=== PATIENT | female | born 1995 | race Caucasian/White ===

== ENCOUNTER 2021-06-04 10:52 | Emergency (ER) | payer MEDICAID, OTHER ==
[~2021-06-04] VITALS: Ht 160 cm; Wt 58.9 kg
[2021-06-04 11:00] VITALS: BP 106/63
[2021-06-04 11:07] LABS: BILIRUBIN,URINE NEGATIVE (NEGATIVE); CLARITY,URINE SL CLOUDY; COLOR,URINE YELLOW; GLUCOSE, URINE (UA) NEGATIVE (NEGATIVE); KETONES,URINE TRACE (NEGATIVE); LEUKOCYTE ESTERASE ,URINE TRACE (NEGATIVE); NITRITE,URINE NEGATIVE (NEGATIVE); PROTEIN,URINE NEGATIVE (NEGATIVE)
[2021-06-04 11:20] LABS: BACTERIA,URINE MODERATE /HPF; RBC,URINE RARE /HPF; SQUAMOUS EPITHELIAL CELL,UR 15-20 /HPF
--- NOTE | 2021-06-04 11:20 | ED GU-Female ---
General Chief Complaint: - Reproductive Stated Complaint: SUPRAPUBIC PAIN Source: patient, family Exam Limitations: no limitations History of Present Illness Date Seen by Provider: Jun 04, 2021 Time Seen by Provider: 10:54 Initial Comments 25yoF otherwise healthy coming in for 2 weeks of abd pain, backache, bodyaches. Also feeling intermittently short of breath, not right now. with positive test this Thanksgiving. Vaginal bleeding around that time and none since. LMP was 04/29/21. Has had n/v every day for the past 2 weeks that are nb/nb with loose bowel movements. The pain in her abd in LLQ, sharp, constant for 2 weeks, and moderate. Tylenol takes the edge off the pain. Allergies and Home Medications Allergies Coded Allergies: ibuprofen (Verified Allergy, Unknown, angioedema, 06/04/21) naproxen (Verified Allergy, Unknown, angioedema, 06/04/21) Patient Home Medication List Home Medication List Reviewed: Yes Review of Systems Review of Systems Constitutional: No chills, No fever EENTM: No blurred vision Respiratory: cough, short of breath Cardiovascular: No chest pain Gastrointestinal: abdominal pain Genitourinary: no symptoms reported : Yes Musculoskeletal: no symptoms reported Skin: no symptoms reported Psychiatric/Neurological: No Symptoms Reported Endocrine: No Symptoms Reported Hematologic/Lymphatic: No Symptoms Reported All Other Systemes Reviewed Negative Unless Noted: Yes Past Sgnkcdt-Gevgyd-Adcnfg Hx Patient Social History Substance use?: No Past Medical History Surgeries: No Physical Exam Vital Signs Vital Signs - First Documented 06/04/21 11:00 Temp 37.2 Pulse 114 Resp 16 B/P (MAP) 106/63 (77) Pulse Ox 100 O2 Delivery Room Air Capillary Refill : Height, Weight, BMI Height: '" Weight: lbs. oz. kg; BMI Method: General Appearance: WD/WN, no apparent distress HEENT: PERRL/EOMI, normal ENT inspection, pharynx normal Neck: non-tender, full range of motion, supple, normal inspection Cardiovascular: regular rate, rhythm, no edema, no murmur Respiratory: chest non-tender, lungs clear, normal breath sounds, no respiratory distress, no accessory muscle use Gastrointestinal: normal bowel sounds, non tender, soft; No distended, No guarding Back: normal inspection, no CVA tenderness, no vertebral tenderness Extremities: normal range of motion, non-tender, normal inspection, no pedal edema, no calf tenderness Neurologic/Psychiatric: no motor/sensory deficits, alert, normal mood/affect Skin: normal color, warm/dry Lymphatic: no adenopathy Progress/Results/Core Measures Suspected Sepsis SIRS Temperature: Pulse: Respiratory Rate: Blood Pressure / Mean: Results/Orders Lab Results Laboratory Tests Test 06/04/21 11:00 06/04/21 11:17 06/04/21 11:35 Range/Units Urine Color YELLOW Urine Clarity SL CLOUDY Urine pH 7.0 5-9 Urine Specific [place] 1.015 L 1.016-1.022 Urine Protein NEGATIVE NEGATIVE Urine Glucose (UA) NEGATIVE NEGATIVE Urine Ketones TRACE H NEGATIVE Urine Nitrite NEGATIVE NEGATIVE Urine Bilirubin NEGATIVE NEGATIVE Urine Urobilinogen 0.2 < = 1.0 MG/DL Urine Leukocyte Esterase TRACE H NEGATIVE Urine RBC (Auto) NEGATIVE NEGATIVE Urine RBC RARE /HPF Urine WBC 2-5 /HPF Urine Squamous Epithelial Cells 15-20 /HPF Urine Crystals NONE /LPF Urine Bacteria MODERATE H /HPF Urine Casts NONE /LPF Urine Mucus LARGE H /LPF Urine Culture Indicated NO Human Chorionic Gonadotropin, Quant [id number] H <5 MIU/ML My Orders Orders - MATTHEW VO MD Ua Culture If Indicated (06/04/21 10:58) Urine Bedside (06/04/21 10:58) Hcg,Quantitative (06/04/21 11:07) Covid 19 Inhouse Test (06/04/21 11:07) Acetaminophen Tablet (Tylenol Tablet) (06/04/21 11:45) Nitrofurantoin Capsule,Macro (Macrobid C (06/04/21 11:45) Promethazine Tablet (Phenergan Tablet) (06/04/21 11:45) Us Ob Transvaginal [id number] (06/04/21 11:44) Vital Signs/I&O 06/04/21 11:00 Temp 37.2 Pulse 114 Resp 16 B/P (MAP) 106/63 (77) Pulse Ox 100 O2 Delivery Room Air Capillary Refill : Progress Note : Progress Note 25-year-old female with above history coming in most notably for left lower quadrant abdominal pain in the setting of a positive test. ABCs were intact and vitals are stable on presentation. Her abdomen was soft and actually nontender for me. I did a aikhe-cr-fgcz ultrasound and I am unable to identify an intrauterine . Her oadgs-vk-zroc urine test here was positive so beta hCG quantitative was sent. Urinalysis was obtained and does appear to have bacteria as well as leukocyte esterase. In the setting of we will treat this with nitrofurantoin. She was also given Tylenol for her pain and Phenergan for nausea. Beta-hCG came back just under 5000. The patient had a transvaginal ultrasound showing a gestational sac and yolk sac but no pole as of yet measuring 5 weeks and 3 days. Her ovaries were normal. Her symptoms seem more consistent with a UTI as well as likely vomiting associated with her . I believe she is stable for discharge with outpatient follow-up. She was sent home with strict return precautions Departure Impression Primary Impression: Urinary tract infection Qualified Codes: N30.00 - Acute cystitis without hematuria Additional Impressions: test positive LLQ pain Disposition: HOME, SELF-CARE Condition: Stable Departure-Patient Inst. Decision time for Depature: 12:11 Referrals: CLAUDIA PADILLA MD NO,LOCAL PHYSICIAN (PCP) Primary Care Physician Patient Instructions: Hyperemesis Gravidarum (DC), Stomach Pain in Early Add. Discharge Instructions: You were seen in the emergency department for mainly your abdominal pain, chills, body aches. You are , and we do see this in your uterus which is reassuring. You also have a urinary tract infection which is likely causing a lot of your symptoms. We did send a Covid test just in case, and this will come back later today. Take the antibiotics for the next week, and Tylenol for pain or fever. Please follow-up with an OB of your choice, [facility]. Scripts Promethazine HCl (Promethazine Tablet) 25 Mg Tablet 12.5 MG PO Q6H PRN for NAUSEA-1ST LINE for 7 Days, #14 TAB Prov: MATTHEW VO MD 06/04/21 Nitrofurantoin Macrocrystal (Nitrofurantoin) 100 Mg Capsule 100 MG PO BID for 7 Days, #14 CAP 0 Refills Prov: MATTHEW VO MD 06/04/21 Work/School Note: Work Release Form Date Seen in the Emergency Department: Jun 04, 2021 Return to Work: Jun 07, 2021 Restrictions: No Restrictions MATTHEW VO MD Jun 04, 2021 11:20
[2021-06-04] MEDS ORDERED: NITROFURANTOIN 100 MG (MACROBID) CAPSULE PO ONE (11:45)
[2021-06-04] MEDS ORDERED: ACETAMINOPHEN 500 MG TAB (TYLENOL) PO ONE (11:45)
[2021-06-04] MEDS ORDERED: PROMETHAZINE 25 MG (PHENERGAN) TAB PO ONE (11:45)
[2021-06-04] MEDS ORDERED: NITR100C PO (12:15)
[2021-06-04] MEDS ORDERED: PROM25TA14 PO (12:15)
--- NOTE | 2021-06-04 12:33 | Diagnostic Imaging Report ---
EXAM: First Trimester Ultrasound INDICATIONS: Age by LMP is 6 weeks, 2 days. TECHNIQUE: The pelvis was scanned using transabdominal and endovaginal technique. COMPARISON: None. FINDINGS: Endovaginal sonography demonstrates a single intrauterine gestational sac. A normal appearing secondary yolk sac is identified. There is a 1.6 x 1.3 x 0.4 cm subchorionic hemorrhage present. No free fluid is seen within the cul-de-sac. Both ovaries were identified and appear normal. The left measures 1.9 x 1.7 x 2.2 cm, and the right 3.0 x 1.8 x 2.1 cm. No abnormal adnexal masses. No free fluid. biometry: Mean sac diameter 8 mm: 5 weeks, 3 days. IMPRESSION: 1. Intrauterine gestation of uncertain viability. Recommend follow-up ultrasound in 11 days to document viability. 2. Small subchronic hemorrhage. Dictated by: Dictated on workstation # [id number]
== END 2021-06-04 12:36 | disposition home or self-care (01) ==
LOC: ER FS 10:55
DX: N39.0 Urinary tract infection, site not specified (principal); Z32.01 Encounter for pregnancy test, result positive; Z20.822 Contact with and (suspected) exposure to COVID-19
CPT/HCPCS: 36415; 76817; 81000; 84702; 84703; 87636

== ENCOUNTER 2021-06-09 13:37 | Emergency (ER) | payer MEDICAID ==
[~2021-06-09] VITALS: Ht 160 cm; Wt 62.6 kg
[~2021-06-09 13:37] MED LIST: NITR100C PO; PROM25TA14 PO
[2021-06-09 14:13] LABS: BILIRUBIN,URINE NEGATIVE (NEGATIVE); CLARITY,URINE CLEAR; COLOR,URINE YELLOW; GLUCOSE, URINE (UA) NEGATIVE (NEGATIVE); KETONES,URINE NEGATIVE (NEGATIVE); LEUKOCYTE ESTERASE ,URINE NEGATIVE (NEGATIVE); NITRITE,URINE NEGATIVE (NEGATIVE); PH,URINE 7.5 (5-9); PROTEIN,URINE NEGATIVE (NEGATIVE)
[2021-06-09 14:14] LABS: BACTERIA,URINE NEGATIVE /HPF; WBC,URINE 0-2 /HPF
--- NOTE | 2021-06-09 15:02 | Diagnostic Imaging Report ---
INDICATION: Left lower quadrant pain. FINDINGS: There is an intrauterine gestational sac containing a pole. Ophiem-rump length is approximately 4 mm, consistent with 6 weeks 1 day gestation. heart rate was recorded at 113 bpm. There is an area of subchorionic hemorrhage measuring 2.0 x 1.2 x 0.9 cm. Ovaries are unremarkable. No adnexal mass or free fluid is identified. IMPRESSION: Single live IUP 6 weeks 1 day gestational age. Estimated date of confinement sonographically is 02/01/2022. There is brinda-gestational sac hemorrhage present, as described. No other abnormality is detected. Dictated by: Dictated on workstation # [id number]
[2021-06-09] MEDS ORDERED: NS IV 1000 ML 1,000 ML IV STA (15:12)
[2021-06-09] MEDS ORDERED: DICYCLOMINE 10 MG/ML (BENTYL) 2 ML AMP IM STA (15:12)
[2021-06-09 15:16] LABS: BASOPHILS % (AUTO) 0 % (0-10); EOSINOPHILS % (AUTO) 0 % (0-10); HEMATOCRIT 40 % (35-52); HEMOGLOBIN 13.4 g/dL (11.5-16.0); LYMPHOCYTES % (AUTO) 38 % (12-44); MEAN CORPUSCULAR HEMOGLOBIN 30 pg (25-34); MEAN CORPUSCULAR HGB CONC 33 g/dL (32-36); MEAN CORPUSCULAR VOLUME 89 fL (80-99); MONOCYTES % (AUTO) 8 % (0-12); NEUTROPHILS % (AUTO) 53 % (42-75); PLATELET COUNT 369 10^3/uL (130-400); WHITE BLOOD COUNT 9.7 10^3/uL (4.3-11.0)
[2021-06-09 15:17] LABS: LYMPHOCYTES # (AUTO) 3.7 X 10^3 (1.0-4.0); MONOCYTES # (AUTO) 0.8 X 10^3 (0.0-1.0); NEUTROPHILS # (AUTO) 5.1 X 10^3 (1.8-7.8)
[2021-06-09 15:31] LABS: ALBUMIN 4.1 GM/DL (3.2-4.5); BILIRUBIN,TOTAL 0.2 MG/DL (0.1-1.0); CALCIUM 9.4 MG/DL (8.5-10.1); CREATININE SERUM 0.44 MG/DL (0.60-1.30); POTASSIUM 4.1 MMOL/L (3.6-5.0); TOTAL PROTEIN 7.8 GM/DL (6.4-8.2)
[2021-06-09] MEDS ORDERED: morphine INJ 10 MG/ML 1ML (SYR OR VIAL) IVP STA (17:11)
[2021-06-09] MEDS ORDERED: diphenhydrAMINE 50 MG/ML INJ (BENADRYL) IVP STA (17:11)
[2021-06-09] MEDS ORDERED: METOCLOPRAMIDE INJ 10 MG/2 ML (REGLAN) IVP STA (17:11)
--- NOTE | 2021-06-09 17:23 | ED General ---
General Chief Complaint: Abdominal/GI Problems Stated Complaint: LRQ PAIN Nursing Triage Note: Patient reports constant left lower quadrant abdominal pain and diarrhea since this morning. She states she is approximately 6 weeks and has had nausea/vomiting for several weeks, which has not changed. Source of Information: Patient, Old Records History of Present Illness Date Seen by Provider: Jun 09, 2021 Time Seen by Provider: 14:45 Initial Comments 25 yo female presenting with recurrent left lower quadrant abdominal pain that has been constant since this am. She also reports having bloody diarrhea. She denies any vaginal discharge or bleeding. She is approximately 6 weeks and was seen on June 04 for left lower quadrant abdominal pain and concerned about her . She has not been able to get in with any providers in [place] since being seen 5 days ago. She reports that one provider was moving away from the area and the other was full and did not have any openings. She continues to have nausea and vomiting but that has not changed over the last 6 weeks during her . The recurrent left lower quadrant abdominal pain now is associated with bloody diarrhea. This comes on after she eats something. She denies having this previously. She denies any ill contacts. She denies any pain or burning with urination. She did recently just finished a course of antibiotics for urinary tract infection. Timing/Duration: 1 Day Severity: Severe Modifying Factors: worse with Eating, worse with Movement Associated Systoms: No Chest Pain, No Cough, No Diaphoresis; Fever/Chills (subjective); No Headaches; Malaise, Nausea/Vomiting; No Seizure, No Shortness of Air, No Syncope Allergies and Home Medications Allergies Coded Allergies: ibuprofen (Verified Allergy, Unknown, angioedema, 06/04/21) naproxen (Verified Allergy, Unknown, angioedema, 06/04/21) Patient Home Medication List Home Medication List Reviewed: Yes Acetaminophen with Codeine (Acetaminophen-Cod #3 Tablet) 1 Each Tablet, 1 EACH PO Q4H PRN for PAIN-SEVERE (8-10) Prescribed by: AGBRIELA YEE on 06/09/21 172 Dicyclomine HCl (Dicyclomine HCl) 10 Mg Capsule, 10 MG PO QID PRN for abdominal pain/cramping Prescribed by: GABRIELA YEE on 06/09/21 172 Metoclopramide HCl (Metoclopramide HCl) 5 Mg Tablet, 5 MG PO TID PRN for NAUSEA/VOMITING Prescribed by: GABRIELA YEE on 06/09/21 1726 Nitrofurantoin Macrocrystal (Nitrofurantoin) 100 Mg Capsule, 100 MG PO BID Prescribed by: MATTHEW VO on 06/04/21 1215 Discontinued Medications Promethazine HCl (Promethazine Tablet) 25 Mg Tablet, 12.5 MG PO Q6H PRN for NAUSEA-1ST LINE Prescribed by: MATTHEW VO on 06/04/21 1215 Review of Systems Review of Systems Constitutional: see HPI EENTM: no symptoms reported Respiratory: no symptoms reported Cardiovascular: no symptoms reported Gastrointestinal: see HPI Genitourinary: see HPI : Yes Musculoskeletal: no symptoms reported Skin: no symptoms reported Psychiatric/Neurological: Anxiety Past Xngijtq-Amgnyb-Hosxqh Hx Patient Social History Tobacco Use?: Yes Tobacco type used: Cigarettes Smoking Status: Current Everyday Smoker Substance use?: No Alcohol Use?: No Pt feels they are or have been: No Past Medical History Surgeries: No Physical Exam Vital Signs Vital Signs - First Documented 06/09/21 13:50 Temp 36.5 Pulse 86 Resp 16 B/P (MAP) 106/66 (79) Pulse Ox 98 O2 Delivery Room Air Capillary Refill : Less Than 3 Seconds Height, Weight, BMI Height: '" Weight: lbs. oz. kg; 24.00 BMI Method: General Appearance: Anxious, Mild Distress HEENT: PERRL/EOMI, Pharynx Normal, Moist Mucous Membranes Neck: Full Range of Motion, Normal Inspection, Non Tender, Supple Respiratory: Chest Non Tender, Lungs Clear, Normal Breath Sounds, No Accessory Muscle Use, No Respiratory Distress Cardiovascular: Regular Rate, Rhythm, Normal Peripheral Pulses Gastrointestinal: Normal Bowel Sounds, No Pulsatile Mass, Soft; No Distended, No Rebound; Tenderness (LLQ) Rectal: Deferred Back: No CVA Tenderness Extremity: Normal Capillary Refill, Normal Inspection, No Pedal Edema Neurologic/Psychiatric: Alert, Oriented x3, carton repairer II-XII Norm as Tested Skin: Normal Color, Warm/Dry Progress/Results/Core Measures Suspected Sepsis SIRS Temperature: Pulse: 86 Respiratory Rate: 16 Laboratory Tests 06/09/21 15:00: White Blood Count 9.7 Blood Pressure 106 /66 Mean: 79 Laboratory Tests 06/09/21 15:00: Creatinine 0.44L, Platelet Count 369, Total Bilirubin 0.2 Results/Orders Lab Results Laboratory Tests Test 06/09/21 13:48 06/09/21 15:00 Range/Units Urine Color YELLOW Urine Clarity CLEAR Urine pH 7.5 5-9 Urine Specific [place] 1.015 L 1.016-1.022 Urine Protein NEGATIVE NEGATIVE Urine Glucose (UA) NEGATIVE NEGATIVE Urine Ketones NEGATIVE NEGATIVE Urine Nitrite NEGATIVE NEGATIVE Urine Bilirubin NEGATIVE NEGATIVE Urine Urobilinogen 0.2 < = 1.0 MG/DL Urine Leukocyte Esterase NEGATIVE NEGATIVE Urine RBC (Auto) NEGATIVE NEGATIVE Urine RBC NONE /HPF Urine WBC 0-2 /HPF Urine Squamous Epithelial Cells 2-5 /HPF Urine Crystals NONE /LPF Urine Bacteria NEGATIVE /HPF Urine Casts NONE /LPF Urine Mucus NEGATIVE /LPF Urine Culture Indicated NO White Blood Count 9.7 4.3-11.0 10^3/uL Red Blood Count 4.52 3.80-5.11 10^6/uL Hemoglobin 13.4 11.5-16.0 g/dL Hematocrit 40 35-52 % Mean Corpuscular Volume 89 80-99 fL Mean Corpuscular Hemoglobin 30 25-34 pg Mean Corpuscular Hemoglobin Concent 33 32-36 g/dL Red Cell Distribution Width 13.3 10.0-14.5 % Platelet Count 369 130-400 10^3/uL Mean Platelet Volume 10.0 9.0-12.2 fL Neutrophils (%) (Auto) 53 42-75 % Lymphocytes (%) (Auto) 38 12-44 % Monocytes (%) (Auto) 8 0-12 % Eosinophils (%) (Auto) 0 0-10 % Basophils (%) (Auto) 0 0-10 % Neutrophils # (Auto) 5.1 1.8-7.8 X 10^3 Lymphocytes # (Auto) 3.7 1.0-4.0 X 10^3 Monocytes # (Auto) 0.8 0.0-1.0 X 10^3 Eosinophils # (Auto) 0.0 0.0-0.3 10^3/uL Basophils # (Auto) 0.0 0.0-0.1 10^3/uL Sodium Level 136 135-145 MMOL/L Potassium Level 4.1 3.6-5.0 MMOL/L Chloride Level 100 98-107 MMOL/L Carbon Dioxide Level 24 21-32 MMOL/L Anion Gap 12 5-14 MMOL/L Blood Urea Nitrogen 5 L 7-18 MG/DL Creatinine 0.44 L 0.60-1.30 MG/DL Estimat Glomerular Filtration Rate 177 BUN/Creatinine Ratio 11 Glucose Level 88 70-105 MG/DL Calcium Level 9.4 8.5-10.1 MG/DL Corrected Calcium 9.3 8.5-10.1 MG/DL Total Bilirubin 0.2 0.1-1.0 MG/DL Aspartate Amino Transf (AST/SGOT) 15 5-34 U/L Alanine Aminotransferase (ALT/SGPT) 14 0-55 U/L Alkaline Phosphatase 58 40-136 U/L Total Protein 7.8 6.4-8.2 GM/DL Albumin 4.1 3.2-4.5 GM/DL Lipase 23 8-78 U/L Human Chorionic Gonadotropin, Quant [id number] H <5 MIU/ML My Orders Orders - GABRIELA YEE MD Comprehensive Metabolic Panel (06/09/21 13:59) Lipase (06/09/21 13:59) Ua Culture If Indicated (06/09/21 13:59) Ed Iv/Invasive Line Start (06/09/21 13:59) Cbc With Automated Diff (06/09/21 13:59) Hcg,Quantitative (06/09/21 13:59) Us Ob<14 Wks Sngle W/Transvag (06/09/21 13:59) Dicyclomine Injection (Bentyl Injection) (06/09/21 15:12) Ns Iv 1000 Ml (Sodium Chloride 0.9%) (06/09/21 15:12) Stool Culture (06/09/21 15:12) Fecal Wbc (06/09/21 15:12) C Difficile Ag + Toxin A/B. (06/09/21 15:12) Isolation Central Supply Req (06/09/21 15:12) Fecal Occult Bedside (06/09/21 15:12) Morphine Injection (Morphine Injection (06/09/21 17:11) Metoclopramide Injection (Reglan Injecti (06/09/21 17:11) Diphenhydramine Injection (Benadryl Inje (06/09/21 17:11) Vital Signs/I&O 06/09/21 06/09/21 13:50 17:36 Temp 36.5 Pulse 86 71 Resp 16 16 B/P (MAP) 106/66 (79) 114/72 Pulse Ox 98 97 O2 Delivery Room Air Room Air Capillary Refill : Less Than 3 Seconds Blood Pressure Mean: 79 Progress Note #1: Progress Note Obtain basic labs and urinalysis. Order ultrasound to evaluate the left lower quadrant abdominal pain. Compare to testing from June 04. Progress Note #2: Progress Note Ultrasound shows consistent with study from June 04. She still has a small subchorionic hemorrhage. There is been interval growth of the fetus consistent with 5 days passage of time. heart tones were observed. No other abnormality seen in the left lower quadrant to account for her symptoms. Labs appeared stable without acute elevation of her white blood cell count. Her ur ine was not showing signs of infection. As patient was a dose of Bentyl was given to try and help with her pain since she reports the Tylenol was not helping at home. Progress Note #3: Progress Note On recheck of the patient after Bentyl she denies any significant improvement in her symptoms or pain. With her test all looking stable otherwise will treat symptomatically. She was not able to provide a diarrhea sample for testing here in the ED. Given information for both [facility] as well as the [facility] out of [place], since she reports not being able to find a provider in [place]. Try a dose of IV pain medicine as well as discharged on Tylenol with codeine, Bentyl for abdominal cramping, Reglan for nausea. Diagnostic Imaging Diagonstic Imaging: Ultrasound Plain Films/CT/US/NM/MRI: pelvis Comments [facility], [place] NAME: JEFFREY MELENDREZ [facility] REC#: [id number] PT STATUS: REG ER : 1995 PHYSICIAN: GABRIELA YEE MD ADMIT DATE: 06/09/21/ER FS Signed Date of Exam:06/09/21 US OB<14 WKS SNGLE W/TRANSVAG INDICATION: Left lower quadrant pain. FINDINGS: There is an intrauterine gestational sac containing a pole. [place]-rump length is approximately 4 mm, consistent with 6 weeks 1 day gestation. heart rate was recorded at 113 bpm. There is an area of subchorionic hemorrhage measuring 2.0 x 1.2 x 0.9 cm. Ovaries are unremarkable. No adnexal mass or free fluid is identified. IMPRESSION: Single live IUP 6 weeks 1 day gestational age. Estimated date of confinement sonographically is 02/01/2022. There is brinda-gestational sac hemorrhage present, as described. No other abnormality is detected. Dictated by: Dictated on workstation # [id number] Dict: 06/09/21 1453 Trans: 06/09/21 1558 PJE [id number] Interpreted by: COLBY CAMPA MD Electronically signed by: COLBY CAMPA MD 06/09/21 9761 Departure Impression Primary Impression: Left flank pain Additional Impressions: Bloody diarrhea Incidental intrauterine Disposition: 01 HOME, SELF-CARE Condition: Stable Departure-Patient Inst. Decision time for Depature: 17:18 Referrals: NO,LOCAL PHYSICIAN (PCP) Primary Care Physician MAU STEWART DO [facility] Patient Instructions: [place] Diet, Bloody Stools, Adult ED, Flank Pain (DC), Flank Pain ED, Full Liquid Diet, Stomach Pain in Early Add. Discharge Instructions: Try following the liquid diet for 24 to 48 hours. Then try advancing to a more bland diet. You can try using the dicyclomine or Bentyl for pain as well as taking the Tylenol with codeine for severe pain. Check back with the clinic to try and get established with a provider for primary care as well as an OB provider. The [facility] can be reached at [phone]. You could try checking with [facility] out of [place] by calling Dr. Stewart's office and checking to be seen by one of the providers in her clinic. All discharge instructions reviewed with patient and/or family. Voiced understanding. Scripts Acetaminophen with Codeine (Acetaminophen-Cod #3 Tablet) 1 Each Tablet 1 EACH PO Q4H PRN for PAIN-SEVERE (8-10) for 5 Days, #30 TAB 0 Refills Prov: GABRIELA YEE MD 06/09/21 Dicyclomine HCl (Dicyclomine HCl) 10 Mg Capsule 10 MG PO QID PRN for abdominal pain/cramping for 5 Days, #20 CAP 0 Refills Prov: GABRIELA YEE MD 06/09/21 Metoclopramide HCl (Metoclopramide HCl) 5 Mg Tablet 5 MG PO TID PRN for NAUSEA/VOMITING for 7 Days, #21 TAB 0 Refills Prov: GABRIELA YEE MD 06/09/21 GABRIELA YEE MD Jun 09, 2021 17:23
[2021-06-09] MEDS ORDERED: ACET1TAB43 PO (17:26)
[2021-06-09] MEDS ORDERED: DICY10CA12 PO (17:26)
[2021-06-09] MEDS ORDERED: METO5TAB2 PO (17:26)
[2021-06-09 17:36] VITALS: BP 114/72
== END 2021-06-09 17:37 | disposition home or self-care (01) ==
LOC: EDUNIT# 13:37 → ER FS 13:40
DX: O26.891 Other specified pregnancy related conditions, first trimester (principal); K92.1 Melena; R10.32 Left lower quadrant pain; F17.210 Nicotine dependence, cigarettes, uncomplicated; Z3A.01 Less than 8 weeks gestation of pregnancy
CPT/HCPCS: 36415; 76801; 76817; 80053; 81000; 83690; 84702; 85025; 96372; 96374; 96375